=== PATIENT | male | born 1950 | race Caucasian/White ===

== ENCOUNTER 2016-12-16 11:55 | Inpatient (IN) | payer OTHER ==
[~2016-12-16] VITALS: Ht 176.5 cm; Wt 95.1 kg
[2016-12-16 12:18] LABS: ADD MIUA? YES; BILIRUBIN MODERATE; BLOOD NEGATIVE; COLOR AMBER ((YELLOW)); GLUCOSE (STRIP) NEGATIVE; KETONES 20; LEUKOCYTES NEGATIVE; NITRITE NEGATIVE; PROTEIN (STRIP) NEGATIVE; SPECIFIC GRAVITY 1.016 (1.000-1.030)
[2016-12-16 12:32] LABS: HEMATOCRIT 45.8 % (38.0-50.0); MCH 30.3 PG (29.0-34.0); MCHC 35.2 G/DL (30.0-36.0); MCV 86.1 FL (86-99); MEAN PLAT.VOLUME 9.7 uM^3 (9.0-12.4); PLATELET COUNT 174 K/uL (156-360); RBC DIS.WIDTH-CV 12.8 % (11.8-14.6); RBC DIS.WIDTH-SD 39.7 % (39-53); RED BLOOD COUNT 5.32 M/uL (4.00-5.50); WHITE BLOOD COUNT 8.7 K/uL (4.1-10.2)
[2016-12-16 12:41] LABS: CHLORIDE 102 mEq/L (99-109); POTASSIUM 3.9 mEq/L (3.7-5.4); SODIUM 137 mEq/L (136-147)
[2016-12-16 12:43] LABS: GLUCOSE 113 mg/dL (70-99)
[2016-12-16 12:44] LABS: ANION GAP 10 MEQ/L (2-14)
[2016-12-16 12:45] LABS: TOTAL BILIRUBIN 7.8 mg/dL (0.0-1.0)
[2016-12-16 12:46] LABS: ALKALINE PHOSPHATASE 224 IU/L (3-129)
[2016-12-16 12:47] LABS: GFR ESTIMATE (CALCULATED) > 59 mL/min/
[2016-12-16 12:48] LABS: UREA NITROGEN (BUN) 17 mg/dL (9-23)
[2016-12-16 12:50] LABS: BACTERIA NONE SEEN /HPF; EPITHELIAL CELLS RARE /HPF; HYALINE CASTS 0-5 /LPF; MUCUS TRACE /LPF; RED BLOOD CELLS 0-5 /HPF (0-5); UCUL ADDED? NO; WHITE BLOOD CELLS 0-5 /HPF (0-5)
[2016-12-16 13:06] LABS: ICTOTEST POSITIVE
[2016-12-16 13:08] LABS: LIPASE 11 U/L (1.0-51.0)
[2016-12-16 16:46] LABS: Estimated Average Glucose 131 mg/dL (70-123); HEMOGLOBIN A1c (GLYCOHEMOGLOB) 6.2 % HGB (Below 5.7)
[2016-12-16 16:49] LABS: HDL CHOLESTEROL 60 MG/DL (Desirable>=40); LDL CHOLESTEROL 48 mg/dL (Desirable<100); NON-HDL CHOLESTEROL 59 mg/dL (Desirable<160); TOTAL CHOLESTEROL 119 mg/dL (Desirable<200); TRIGLYCERIDES 55 MG/DL (Normal: <150)
[2016-12-16 18:10] VITALS: BP 141/65
[2016-12-16 20:33] VITALS: BP 141/65
[2016-12-16] MEDS ORDERED: PRAVACHOL40 MG PO (21:07)
[2016-12-16 21:38] LABS: POINT-OF-CARE METER ID UU14208750
[2016-12-16] MEDS ORDERED: ALFUZOSIN HCL10 MG PO (22:19)
[2016-12-16] MEDS ORDERED: VASOTEC10 MG PO (22:20)
[2016-12-16] MEDS ORDERED: ZOLOFT100 MG PO (22:21)
[2016-12-16] MEDS ORDERED: CYTOMEL5 MCG PO (22:21)
[2016-12-16] MEDS ORDERED: LEVOTHYROXINE125 MCG PO (22:22)
[2016-12-16] MEDS ORDERED: WELLBUTRIN XL300 MG PO (22:22)
[2016-12-16] MEDS ORDERED: ALDACTONE50 MG PO (22:23)
[2016-12-16] MEDS ORDERED: COREG25 M1 PO (22:23)
[2016-12-16] MEDS ORDERED: RANITIDINE HCL150 MG PO (22:24)
[2016-12-16] MEDS ORDERED: TADALAFIL5 MG PO (22:25)
[2016-12-16] MEDS ORDERED: PRILOSEC20 MG PO (22:25)
[2016-12-16] MEDS ORDERED: HUMALOG100 UNIT/1 SCCONT (22:28)
[2016-12-17 00:51] VITALS: BP 116/56
[2016-12-17 04:10] VITALS: BP 109/58
[2016-12-17 06:27] LABS: POINT-OF-CARE METER ID UU14208750
[2016-12-17 06:28] LABS: HEMATOCRIT 41.8 % (38.0-50.0); MCH 30.9 PG (29.0-34.0); MCHC 35.2 G/DL (30.0-36.0); MEAN PLAT.VOLUME 10.1 uM^3 (9.0-12.4); PLATELET COUNT 154 K/uL (156-360); RBC DIS.WIDTH-CV 13.2 % (11.8-14.6); RBC DIS.WIDTH-SD 42.2 % (39-53); RED BLOOD COUNT 4.75 M/uL (4.00-5.50); WHITE BLOOD COUNT 6.8 K/uL (4.1-10.2)
[2016-12-17 06:46] LABS: INTER. NORMALIZED RATIO 1.1; PROTHROMBIN TIME 11.8 SEC (10.2-12.9)
[2016-12-17 06:52] LABS: ALKALINE PHOSPHATASE 204 IU/L (3-129); ANION GAP 10 MEQ/L (2-14); CHLORIDE 107 MEQ/L (99-109); GFR ESTIMATE (CALCULATED) > 59 mL/min/; GLUCOSE 106 mg/dL (70-99); SAMPLE HEMOLYSIS CHECK 0; SAMPLE ICTERIC CHECK 2; SAMPLE LIPEMIA CHECK 0; SODIUM 142 MEQ/L (136-147); TOTAL BILIRUBIN 8.2 MG/DL (0.0-1.0); UREA NITROGEN (BUN) 19 mg/dL (9-23)
[2016-12-17 07:40] VITALS: BP 109/56
[2016-12-17 11:48] LABS: POINT-OF-CARE METER ID UU14208750
[2016-12-17 12:01] VITALS: BP 127/69
[2016-12-17 15:45] VITALS: BP 131/62
[2016-12-17 17:02] LABS: POINT-OF-CARE METER ID UU14162508
[2016-12-17 21:35] LABS: POINT-OF-CARE METER ID UU14208750
[2016-12-18 00:42] VITALS: BP 123/57
[2016-12-18 05:48] LABS: POINT-OF-CARE METER ID UU14162508
[2016-12-18 06:57] LABS: HEMATOCRIT 42.8 % (38.0-50.0); MCH 31.2 PG (29.0-34.0); MCHC 34.6 G/DL (30.0-36.0); MCV 90.3 FL (86-99); MEAN PLAT.VOLUME 9.9 uM^3 (9.0-12.4); PLATELET COUNT 137 K/uL (156-360); RBC DIS.WIDTH-CV 13.2 % (11.8-14.6); RBC DIS.WIDTH-SD 44.2 % (39-53); RED BLOOD COUNT 4.74 M/uL (4.00-5.50); WHITE BLOOD COUNT 6.5 K/uL (4.1-10.2)
[2016-12-18 07:10] VITALS: BP 113/53
[2016-12-18 07:22] LABS: ANION GAP 12 MEQ/L (2-14); CHLORIDE 103 MEQ/L (99-109); GFR ESTIMATE (CALCULATED) > 59 mL/min/; SAMPLE HEMOLYSIS CHECK 0; SAMPLE ICTERIC CHECK 2; SAMPLE LIPEMIA CHECK 0; SODIUM 139 MEQ/L (136-147); TOTAL BILIRUBIN 7.7 MG/DL (0.0-1.0); UREA NITROGEN (BUN) 13 mg/dL (9-23)
[2016-12-18 07:26] LABS: ALKALINE PHOSPHATASE 257 IU/L (3-129); GLUCOSE 291 mg/dL (70-99); POTASSIUM 5.3 MEQ/L (3.7-5.4)
[2016-12-18 11:11] LABS: POINT-OF-CARE METER ID UU14162508
[2016-12-18] MEDS ORDERED: INSULIN PUMP MC (13:32)
[2016-12-18] MEDS ORDERED: [UNRECOGNIZED DRUG - OTHER] SC (13:34)
[2016-12-18 16:14] VITALS: BP 124/58
[2016-12-18 16:50] LABS: POINT-OF-CARE METER ID UU14162508
[2016-12-18] MEDS ORDERED: INSULIN PUMP SCCONT (18:29)
[2016-12-18] MEDS ORDERED: LO-DOSE ASPIRIN81 M2 PO (18:59)
[2016-12-18] MEDS ORDERED: CLARITIN10 MG PO (19:00)
[2016-12-18] MEDS ORDERED: AFRIN,GENASAL D15 ML BOTH NARES (19:01)
[2016-12-18] MEDS ORDERED: TESTOSTERO200 MG/12 IM (19:21)
[2016-12-18 21:29] LABS: POINT-OF-CARE METER ID UU14162508
[2016-12-19 00:02] VITALS: BP 122/58
[2016-12-19 05:36] LABS: HEMATOCRIT 43.1 % (38.0-50.0); MCH 30.8 PG (29.0-34.0); MCV 87.8 FL (86-99); MEAN PLAT.VOLUME 9.9 uM^3 (9.0-12.4); PLATELET COUNT 162 K/uL (156-360); RBC DIS.WIDTH-CV 13.2 % (11.8-14.6); RBC DIS.WIDTH-SD 42.3 % (39-53); RED BLOOD COUNT 4.91 M/uL (4.00-5.50); WHITE BLOOD COUNT 8.5 K/uL (4.1-10.2)
[2016-12-19 05:45] VITALS: BP 157/75
[2016-12-19 06:19] LABS: POINT-OF-CARE METER ID UU14162508
[2016-12-19 06:45] VITALS: BP 119/57
[2016-12-19 07:18] LABS: ALKALINE PHOSPHATASE 250 IU/L (3-129); ANION GAP 9 MEQ/L (2-14); CHLORIDE 104 MEQ/L (99-109); GFR ESTIMATE (CALCULATED) > 59 mL/min/; SAMPLE HEMOLYSIS CHECK 0; SAMPLE ICTERIC CHECK 2; SAMPLE LIPEMIA CHECK 0; SODIUM 140 MEQ/L (136-147); TOTAL BILIRUBIN 8.1 MG/DL (0.0-1.0); UREA NITROGEN (BUN) 14 mg/dL (9-23)
[2016-12-19 07:19] LABS: GLUCOSE 134 mg/dL (70-99); POTASSIUM 4.1 MEQ/L (3.7-5.4)
[2016-12-19 10:56] VITALS: BP 127/60
[2016-12-19 11:02] LABS: POINT-OF-CARE METER ID UU14162508
[2016-12-19 14:55] LABS: POINT-OF-CARE METER ID UU13113819
[2016-12-19 17:49] LABS: POINT-OF-CARE METER ID UU14208750
[2016-12-19 19:16] VITALS: BP 131/60
[2016-12-19 21:32] LABS: POINT-OF-CARE METER ID UU14208750
[2016-12-19 23:19] VITALS: BP 143/62
[2016-12-20 03:46] VITALS: BP 120/60
[2016-12-20 06:05] LABS: HEMATOCRIT 41.3 % (38.0-50.0); MCHC 34.6 G/DL (30.0-36.0); MCV 86.8 FL (86-99); PLATELET COUNT 153 K/uL (156-360); RBC DIS.WIDTH-CV 13.2 % (11.8-14.6); RBC DIS.WIDTH-SD 41.2 % (39-53); RED BLOOD COUNT 4.76 M/uL (4.00-5.50); WHITE BLOOD COUNT 10.8 K/uL (4.1-10.2)
[2016-12-20 06:49] LABS: ALKALINE PHOSPHATASE 260 IU/L (3-129); ANION GAP 10 MEQ/L (2-14); CHLORIDE 104 MEQ/L (99-109); GFR ESTIMATE (CALCULATED) > 59 mL/min/; GLUCOSE 109 mg/dL (70-99); POTASSIUM 4.1 MEQ/L (3.7-5.4); SAMPLE HEMOLYSIS CHECK 0; SAMPLE ICTERIC CHECK 1; SAMPLE LIPEMIA CHECK 0; SODIUM 139 MEQ/L (136-147); UREA NITROGEN (BUN) 20 mg/dL (9-23)
[2016-12-20 06:51] LABS: POINT-OF-CARE METER ID UU14162508
[2016-12-20 06:56] LABS: TOTAL BILIRUBIN 4.6 MG/DL (0.0-1.0)
[2016-12-20 08:36] VITALS: BP 122/58
[2016-12-20 11:37] VITALS: BP 131/69
[2016-12-20 11:39] LABS: POINT-OF-CARE METER ID UU14162508
[2016-12-20 15:38] VITALS: BP 113/51
[2016-12-20 16:50] LABS: POINT-OF-CARE METER ID UU14208750
[2016-12-20 20:33] VITALS: BP 123/58
[2016-12-20 21:32] LABS: POINT-OF-CARE METER ID UU14162508
[2016-12-20 23:53] VITALS: BP 113/55
[2016-12-21 03:14] VITALS: BP 120/58
[2016-12-21 06:24] LABS: POINT-OF-CARE METER ID UU14162508
[2016-12-21 06:51] LABS: EOSINOPHIL (%) 1.8 % (0-5); EOSINOPHIL COUNT 0.2 K/uL (0-0.3); HEMATOCRIT 41.6 % (38.0-50.0); IMMATURE GRANULOCYTE (%) 1.6 % (0.0-0.7); IMMATURE GRANULOCYTE COUNT 0.2 K/uL; INSTRUMENT ABS NEUTROPHIL CT 6.2 K/uL; LYMPHOCYTE COUNT 1.6 K/uL (1.0-2.8); MCHC 33.4 G/DL (30.0-36.0); MCV 89.8 FL (86-99); MEAN PLAT.VOLUME 10.1 uM^3 (9.0-12.4); MONOCYTE (%) 12.8 % (3-12); MONOCYTE COUNT 1.2 K/uL (0-0.8); NEUTROPHIL (%) 66.3 % (45-76); NEUTROPHIL COUNT 6.2 K/uL (1.8-6.4); PLATELET COUNT 149 K/uL (156-360); RBC DIS.WIDTH-CV 13.7 % (11.8-14.6); RBC DIS.WIDTH-SD 44.4 % (39-53); RED BLOOD COUNT 4.63 M/uL (4.00-5.50); WHITE BLOOD COUNT 9.4 K/uL (4.1-10.2)
[2016-12-21 07:18] LABS: ALKALINE PHOSPHATASE 220 IU/L (3-129); ANION GAP 7 MEQ/L (2-14); CHLORIDE 106 MEQ/L (99-109); GFR ESTIMATE (CALCULATED) > 59 mL/min/; GLUCOSE 106 mg/dL (70-99); POTASSIUM 4.6 MEQ/L (3.7-5.4); SAMPLE HEMOLYSIS CHECK 0; SAMPLE ICTERIC CHECK 1; SAMPLE LIPEMIA CHECK 0; SODIUM 144 MEQ/L (136-147); UREA NITROGEN (BUN) 13 mg/dL (9-23)
[2016-12-21 07:22] LABS: TOTAL BILIRUBIN 3.5 MG/DL (0.0-1.0)
[2016-12-21 08:05] LABS: LIPASE 58 U/L (1.0-51.0)
[2016-12-21 08:25] VITALS: BP 138/66
[2016-12-21 11:20] VITALS: BP 135/66
[2016-12-21 11:45] LABS: POINT-OF-CARE METER ID UU14162508
[2016-12-21 14:23] LABS: POINT-OF-CARE METER ID UU14162508
[2016-12-21 14:26] VITALS: BP 156/79
[2016-12-21 19:06] LABS: POINT-OF-CARE METER ID UU13113675
[2016-12-21 19:48] VITALS: BP 136/67
[2016-12-21 21:37] LABS: POINT-OF-CARE METER ID UU14208750
[2016-12-21 23:45] VITALS: BP 148/69
[2016-12-22 04:20] VITALS: BP 121/60
[2016-12-22 06:25] LABS: POINT-OF-CARE METER ID UU14162508
[2016-12-22 06:47] LABS: EOSINOPHIL (%) 1.7 % (0-5); EOSINOPHIL COUNT 0.2 K/uL (0-0.3); HEMATOCRIT 41.6 % (38.0-50.0); IMMATURE GRANULOCYTE (%) 0.6 % (0.0-0.7); IMMATURE GRANULOCYTE COUNT 0.1 K/uL; INSTRUMENT ABS NEUTROPHIL CT 7.8 K/uL; LYMPHOCYTE COUNT 1.4 K/uL (1.0-2.8); MCH 30.1 PG (29.0-34.0); MCHC 33.2 G/DL (30.0-36.0); MCV 90.8 FL (86-99); MEAN PLAT.VOLUME 10.4 uM^3 (9.0-12.4); MONOCYTE (%) 12.1 % (3-12); MONOCYTE COUNT 1.3 K/uL (0-0.8); NEUTROPHIL (%) 72.6 % (45-76); NEUTROPHIL COUNT 7.8 K/uL (1.8-6.4); PLATELET COUNT 146 K/uL (156-360); RBC DIS.WIDTH-CV 13.5 % (11.8-14.6); RBC DIS.WIDTH-SD 45.6 % (39-53); RED BLOOD COUNT 4.58 M/uL (4.00-5.50); WHITE BLOOD COUNT 10.8 K/uL (4.1-10.2)
[2016-12-22 06:55] VITALS: BP 118/60
[2016-12-22 07:13] LABS: TROP-I INTERPRETATION NEGATIVE; TROPONIN-I 0.01 ng/mL (0.0-0.30)
[2016-12-22 07:18] LABS: ANION GAP 7 MEQ/L (2-14); CHLORIDE 103 MEQ/L (99-109); GFR ESTIMATE (CALCULATED) > 59 mL/min/; GLUCOSE 159 mg/dL (70-99); MAGNESIUM 1.7 mg/dl (1.3-2.7); POTASSIUM 4.7 MEQ/L (3.7-5.4); SAMPLE HEMOLYSIS CHECK 0; SAMPLE ICTERIC CHECK 0; SAMPLE LIPEMIA CHECK 0; SODIUM 140 MEQ/L (136-147); UREA NITROGEN (BUN) 16 mg/dL (9-23)
[2016-12-22 10:55] VITALS: BP 115/56
[2016-12-22 11:52] LABS: POINT-OF-CARE METER ID UU14208750
[2016-12-22 17:10] LABS: POINT-OF-CARE METER ID UU14162508
[2016-12-22 17:35] VITALS: BP 116/58
[2016-12-22 19:24] VITALS: BP 129/63
[2016-12-22 23:05] VITALS: BP 150/70
[2016-12-22 23:20] LABS: POINT-OF-CARE METER ID UU14208750
[2016-12-23 03:29] VITALS: BP 123/65
[2016-12-23 06:32] LABS: POINT-OF-CARE METER ID UU14208750
[2016-12-23 07:45] VITALS: BP 135/65
[2016-12-23] MEDS ORDERED: HYDROCODON-ACE1 EAC9 PO (11:02)
[2016-12-23 11:46] LABS: POINT-OF-CARE METER ID UU14162508
== END 2016-12-23 12:00 | disposition home or self-care (01) | DRG 418 ==
LOC: EME 11:55 → 2EAST 15:17 → EDOF 15:17 → ENRESERV 15:19 → 2EAST 18:07
PROVIDERS: Internal Medicine; Internal Medicine Gastroenterology; Nurse Practitioner Family
DX: K80.65 Calculus of gallbladder and bile duct with chronic cholecystitis with obstruction (principal); K82.1 Hydrops of gallbladder; I11.0 Hypertensive heart disease with heart failure; I50.22 Chronic systolic (congestive) heart failure; E10.69 Type 1 diabetes mellitus with other specified complication; I42.0 Dilated cardiomyopathy; I27.2 Other secondary pulmonary hypertension; E03.9 Hypothyroidism, unspecified; G47.30 Sleep apnea, unspecified; E78.5 Hyperlipidemia, unspecified; F32.9 Major depressive disorder, single episode, unspecified; G25.0 Essential tremor; I35.0 Nonrheumatic aortic (valve) stenosis; I44.7 Left bundle-branch block, unspecified; K76.0 Fatty (change of) liver, not elsewhere classified; E66.9 Obesity, unspecified; Z96.41 Presence of insulin pump (external) (internal); Z68.30 Body mass index [BMI] 30.0-30.9, adult; Z87.891 Personal history of nicotine dependence; Z79.82 Long term (current) use of aspirin; Z79.4 Long term (current) use of insulin
CPT/HCPCS: 74177; 74181; 74330; 76705; 80048; 80053; 80061; 80076; 81003; 82948; 83036; 83690; 83735; 84439; 84443; 84484; 85025; 85027; 85610; 87081; 88304; 93005; 93306; 99281; 99285; C1757; C1876; J1170; J1644; J1815; J2250; J2405; J2765; J3010; J7030; J7120

== ENCOUNTER → 2017-01-25 | Outpatient (CLI) | payer OTHER ==
[~2017-01-25] VITALS: Ht 175.3 cm; Wt 88.0 kg
[~2017-01-25] MED LIST: AFRIN,GENASAL D15 ML BOTH NARES; ALDACTONE50 MG PO; ALFUZOSIN HCL10 MG PO; CLARITIN10 MG PO; COREG25 M1 PO; CYTOMEL5 MCG PO; HUMALOG100 UNIT/1 SCCONT; HYDROCODON-ACE1 EAC9 PO; INSULIN PUMP MC; INSULIN PUMP SCCONT; LEVOTHYROXINE125 MCG PO; LO-DOSE ASPIRIN81 M2 PO; PRAVACHOL40 MG PO; PRILOSEC20 MG PO; RANITIDINE HCL150 MG PO; TADALAFIL5 MG PO; TESTOSTERO200 MG/12 IM; VASOTEC10 MG PO; WELLBUTRIN XL300 MG PO; ZOLOFT100 MG PO; [UNRECOGNIZED DRUG - OTHER] SC
[2017-01-25 08:55] LABS: POINT-OF-CARE METER ID UU14107333
== END | disposition home or self-care (01) ==
LOC: AMB 08:00
PROVIDERS: Internal Medicine Gastroenterology
PROC: 0FPB8DZ Removal of Intraluminal Device from Hepatobiliary Duct, Via Natural or Artificial Opening Endoscopic (ICD-10-PCS; principal; 2017-01-25)
DX: Z45.89 Encounter for adjustment and management of other implanted devices (principal); Z90.49 Acquired absence of other specified parts of digestive tract
CPT/HCPCS: 76000; 82948; 87081; C1757; J0330